=== PATIENT | male | born 1990 | race Hispanic/Latino ===

== ENCOUNTER 2022-02-15 10:42 | Emergency (ER) | payer OTHER ==
--- OUTSIDE RECORDS SUMMARY | 2022-02-15 10:46 | XMS REPORT | Continuity of Care Document ---
:1990 Author Organization [facility] t Address [address] [place] [address] Care Team Providers Name Role Phone PCP, PATIENT DOES NOT HAVE A Primary Care Physician UnavailALLEY Galvez Attending Clinician Unavailable Nurse, [facility] Attending Clinician Unavailable Unknown, Attending Attending Clinician Unavailable HARPREET BISHOP Attending Clinician Unavailable Doctor Unassigned, [place] Attending Clinician Unavailable MIRTA HALL Attending Clinician Unavailable KYLER BERMUDEZ Attending Clinician Unavailable Isabel Mays MD Attending Clinician [phone] Mi Waldron MA Attending Clinician Unavailable Stacey Cuevas MA Attending Clinician Unavailable LAB90 Attending Clinician Unavailable STACEY SHIN Attending Clinician Unavailable Paty Christopher Attending Clinician Stacey [place] Attending Clinician Shavon Rodriguez RN Attending Clinician Unavailable Only, Ang Db Test Attending Clinician Unavailable Lab, Adc Fam Pob I Attending Clinician Unavailable Meggan Palomares Attending Clinician MEGGAN DRAKE Attending Clinician Unavailable Payers Payer Name Policy Type Policy Number Effective Date Expiration Date Judith JOHANSEN 2 [id number] 2021 00:00:00 Problems Condition Condition Condition Status Onset Resolution Last Treating Co mments Source Name Details Category Date Date Treatment Clinician Date Nausea and Nausea and Disease Active 2021-02 M ethodi vomiting vomiting - st 00:00: Hospita 00 l Alternatin Alternatin Disease Active 2021-02 K elsey g g 0-25 Seybold constipati constipati 00:00: - on and on and 00 Externa diarrhea diarrhea l Epigastric Epigastric Disease Active 2021-02 K elsey pain pain 0-25 Seybold 00:00: - 00 Externa l Gastroesop Gastroesop Disease Active 2021-02 K elsepeng hageal hageal 0-25 Seybold reflux reflux 00:00: - disease disease 00 Externa without without l esophagiti esophagiti s s Cystinuria Cystinuria Disease Active 2021-02 K elsey 0-20 Seybold 00:00: - 00 Externa l Well adult Well adult Disease Active 2021-02 K elsey exam exam 0-19 Seybold 00:00: - 00 Externa l Type 2 Type 2 Disease Active 2021-02 Miesha diabetes diabetes 0-19 Seybol d mellitus mellitus 00:00: - with with 00 Externa hyperlipid hyperlipid l emia emia No known No known Disease Unive rs active active ity of problems problems [facility] Allergies, Adverse Reactions, Alerts Allergy Allergy Status Severity Reaction(s) Onset Inactive Treating Comm ents Source Name Type Date Date Clinician NO KNOWN Drug Active Univers ALLERGIE Class ity of S [facility] Family History Family Member Diagnosis Comments Start Date Stop Date Source [facility] Social History Social Habit Start Date Stop Date Quantity Comments Source History SDOH Miesha Hayward ld - Alcohol Std External Drinks History SDOH Miesha Hayward ld - Alcohol Binge External History SDOH Miesha Hayward ld - Alcohol Frequency Externa l Exposure to 2022-01-18 2022-01-28 Not sure University of SARS-CoV-2 00:00:00 17:28:00 [facility] (event) Branch Tobacco use and 2022-01-28 2022-01-28 Smokeless tobacco Un iversity of exposure 00:00:00 00:00:00 non-user [facility] Alcohol intake 2021-12-20 2021-12-20 Ex-drinker Faith 00:00:00 00:00:00 (finding) Hospital Alcohol Comment 2021-11-28 2021-11-28 rarely Miesha Lockett ybold - 00:00:00 00:00:00 External Education 2021-11-28 2021-11-28 16 Miesha Lockettybold - 00:00:00 00:00:00 External Sex [birth year] M Faith 00:00:00 00:00:00 Hospital Smoking Status Start Date Stop Date Source Never smoked tobacco [facility] Tobacco smoking consumption [facility] Medications Ordered Filled Start Stop Current Ordering Indication Dosage Frequency Signature Comments Components Source Medication Medication Date Date Medication? Clinician (SIG) Name Name ondansetron 2021-02- No 4mg Q8H Take 1 Met hodi ODT 02-19 tablet (4 st (ZOFRAN-ODT 00:00: 05:59 mg total) Hospita ) 4 MG 00 :00 by mouth l disintegrat every 8 ing tablet (eight) hours as needed for nausea or vomiting for up to 30 days. Metformin 2021-02 Yes [id number] 1000mg Take 1 Miesha HCl 1000 MG -07 tablet Seybol d oral Tablet 00:00: (1,000 mg - 00 total) by Externa mouth in l the morning and 1 tablet (1,000 mg total) in the evening. Take with meals. Metformin 2021-02- No [id number] 1000mg Take 2 Miesha HCl 500 MG 02-16 11-07 tablets Seybo ld oral Tablet 00:00: 00:00 (1,000 mg - 00 :00 total) by Externa mouth in l the morning and 2 tablets (1,000 mg total) in the evening. Take with meals. Insulin 2021-02 Yes [id number] 10 units Ke lsey Detemir 0-25 sc every Seybold (Levemir 00:00: day - FlexTouch) 00 Externa 100 UNIT/ML l subcutaneou s Solution Pen-injecto r Metformin 2021-02 Yes [id number] 500mg Take 1 K elsey HCl 500 MG 0-25 tablet Seybold oral Tablet 00:00: (500 mg - 00 total) by Externa mouth l daily (with breakfast) Famotidine 2021-02 Yes [id number] 20mg Take 1 Miesha (Pepcid) 20 0-25 tablet (20 Se ybold MG oral 00:00: mg total) - tablet 00 by mouth 2 Externa times l daily Dicyclomine 2021-02 Yes [id number] 10mg Q.[id number] Take 1 Miesha HCl 10 MG 0-25 [id number] capsule S eybold oral 00:00: 3D (10 mg - Capsule 00 total) by Externa mouth 3 l times daily as needed (stomach cramps) Famotidine 2021-02 Yes [id number] 20mg Take 1 Miesha (Pepcid) 20 0-25 tablet (20 Se ybold MG oral 00:00: mg total) - tablet 00 by mouth 2 Externa times l daily Dicyclomine 2021-02 Yes [id number] 10mg Q.[id number] Take 1 Miesha HCl 10 MG 0-25 [id number] capsule S eybold oral 00:00: 3D (10 mg - Capsule 00 total) by Externa mouth 3 l times daily as needed (stomach cramps) Insulin 2021-02- No [id number] 10 units K elsey Detemir 0-25 11-07 sc every Seybold (Levemir 00:00: 00:00 day - FlexTouch) 00 :00 Externa 100 UNIT/ML l subcutaneou s Solution Pen-injecto r Metformin 2021-02- No [id number] 500mg Take 1 Miesha HCl 500 MG 0-25 11-07 tablet Seybol d oral Tablet 00:00: 00:00 (500 mg - 00 :00 total) by Externa mouth l daily (with breakfast) Continuous 2021-02 Yes [id number] Check BS Miesha Blood Gluc 0-19 twice Seybold Sensor 00:00: daily - (FreeStyle 00 Externa Julianne 2 l Sensor) does not apply Misc Continuous 2021-02 Yes [id number] Check BS Miesha Blood Gluc 0-19 twice Seybold Landcare Officer 00:00: daily - (FreeStyle 00 Externa Julianne 2 l [place]) does not apply Device Continuous 2021-02 Yes [id number] Check BS Miesha Blood Gluc 0-19 twice Seybold Sensor 00:00: daily - (FreeStyle 00 Externa Julianne 2 l Sensor) does not apply Misc Continuous 2021-02 Yes [id number] Check BS Miesha Blood Gluc 0-19 twice Seybold Landcare Officer 00:00: daily - (FreeStyle 00 Externa Julianne 2 l [place]) does not apply Device Metformin 2021-02- No [id number] 1000mg Take 2 Miesha HCl 500 MG 0-19 10-25 tablets Seybo ld oral Tablet 00:00: 00:00 (1,000 mg - 00 :00 total) by Externa mouth in l the morning and 2 tablets (1,000 mg total) in the evening. Take with meals. ondansetron 2021- No [id number] 4mg U nivers (ZOFRAN-ODT 05-18 ity of ) 16:00: 14:58 [place] disintegrat 00 :00 Medical ing tablet Branch 4 mg ondansetron 2021- No [id number] 4mg 4 mg, Univers (ZOFRAN-ODT 05-18 Oral, ity of ) 16:00: 14:58 ONCE, 1 [place] disintegrat 00 :00 dose, On Medi gloria ing tablet 05/18/21 Bra nch 4 mg at 1100, Routine dicyclomine 2021- No [id number] 10mg Take 1 Univers 10 mg 05-1816 capsule by ity of capsule 00:00: 04:59 mouth 4 [place] 00 :00 (four) Medical times Branch daily for 7 days. ondansetron 2021- No [id number] 4mg Take 1 Univers 4 mg 05-18 tablet by ity of disintegrat 00:00: 04:59 [place] tablet 00 :00 every 8 Medica l (eight) Branch hours as needed for Nausea and Vomiting (N/V) for up to 5 days. metFORMIN Yes 500mg Q.5D Take 1 Metho di XR 8-[address] (GLUCOPHAGE 00:00: (500 mg Hos naeem -XR) 500 mg 00 total) by l 24 hr mouth 2 tablet (two) times a day. metFORMIN 2020-0 Yes 1000mg Take 1,000 Univers 1,000 mg 2-01 mg by ity of tablet 03:41: mouth 2 [place] [address] (two) Medical times Branch daily with meals. metFORMIN 2020-0 Yes 1000mg Take 1,000 Univers 1,000 mg 2-01 mg by ity of tablet 03:41: mouth 2 [place] [address] (two) Medical times Branch daily with meals. metFORMIN 2020-0 Yes 1000mg Take 1,000 Univers 1,000 mg 1-31 mg by ity of tablet 21:41: mouth 2 [place] [address] (two) Medical times Branch daily with meals. metFORMIN 2020-0 Yes 1000mg Take 1,000 Univers 1,000 mg 1-31 mg by ity of tablet 21:41: mouth 2 [place] [address] (two) Medical times Branch daily with meals. metFORMIN 2020-0 Yes 1000mg Take 1,000 Univers 1,000 mg 1-31 mg by ity of tablet 21:41: mouth 2 [place] [address] (two) Medical times Branch daily with meals. metFORMIN 2020-0 Yes 1000mg Take 1,000 Univers 1,000 mg 1-31 mg by ity of tablet 21:41: mouth 2 [place] [address] (two) Medical times Branch daily with meals. metFORMIN 2020-0 Yes 1000mg Take 1,000 Univers 1,000 mg 1-31 mg by ity of tablet 21:41: mouth 2 [place] [address] (two) Medical times Branch daily with meals. metFORMIN 2020-0 Yes 1000mg Take 1,000 Univers 1,000 mg 1-31 mg by ity of tablet 21:41: mouth 2 [place] [address] (two) Medical times Branch daily with meals. acetaminoph 2020-0 Yes [id number] /2 - 1 Univers en-codeine 1-31 tab Every ity of 300-30 mg 00:00: 4hrs as [place] tablet 00 needed for Medical pain or Branch cough requiring narcotic metoclopram 2020-0 Yes [id number] 1 tab Univers jabari HCl 10 1-31 every 4hr ity of mg tablet 00:00: as needed Diallo as 00 for nausea Medical Branch acetaminoph 2020-0 Yes [id number] /2 - Univers en-codeine 1-31 tab Every ity of 300-30 mg 00:00: 4hrs as [place] tablet 00 needed for Medical pain or Branch cough requiring narcotic metoclopram 2020-0 Yes [id number] 1 tab Univers jabari HCl 10 1-31 every 4hr ity of mg tablet 00:00: as needed Diallo as 00 for nausea Medical Branch acetaminoph 2020-0 Yes [id number] /2 - 1 Univers en-codeine 1-31 tab Every ity of 300-30 mg 00:00: 4hrs as [place] tablet 00 needed for Medical pain or Branch cough requiring narcotic metoclopram 2020-0 Yes [id number] 1 tab Univers jabari HCl 10 1-31 every 4hr ity of mg tablet 00:00: as needed Diallo as 00 for nausea Medical Branch acetaminoph 2020-0 Yes [id number] 2 - 1 Univers en-codeine 1-31 tab Every ity of 300-30 mg 00:00: 4hrs as [place] tablet 00 needed for Medical pain or Branch cough requiring narcotic metoclopram 2020-0 Yes [id number] 1 tab Univers jabari HCl 10 -31 every 4hr ity of mg tablet 00:00: as needed Diallo as 00 for nausea Medical Branch acetaminoph 2020-0 Yes [id number] 2 - 1 Univers en-codeine 1-31 tab Every ity of 300-30 mg 00:00: 4hrs as [place] tablet 00 needed for Medical pain or Branch cough requiring narcotic metoclopram 2020-0 Yes [id number] 1 tab Univers jabari HCl 10 -31 every 4hr ity of mg tablet 00:00: as needed Diallo as 00 for nausea Medical Branch acetaminoph 2020-0 Yes [id number] 2 - 1 Univers en-codeine 1-31 tab Every ity of 300-30 mg 00:00: 4hrs as [place] tablet 00 needed for Medical pain or Branch cough requiring narcotic metoclopram 2020-0 Yes [id number] 1 tab Univers jabari HCl 10 1-31 every 4hr ity of mg tablet 00:00: as needed Diallo as 00 for nausea Medical Branch acetaminoph 2020-0 Yes [id number] 2 - 1 Univers en-codeine 1-31 tab Every ity of 300-30 mg 00:00: 4hrs as [place] tablet 00 needed for Medical pain or Branch cough requiring narcotic metoclopram 2020-0 Yes [id number] 1 tab Univers jabari HCl 10 1-31 every 4hr ity of mg tablet 00:00: as needed Diallo as 00 for nausea Medical Branch acetaminoph 2019-0 Yes [id number] /2 - 1 Univers en-codeine 1-31 tab Every ity of 300-30 mg 00:00: 4hrs as [place] tablet 00 needed for Medical pain or Branch cough requiring narcotic metoclopram 2019-0 Yes [id number] 1 tab Univers jabari HCl 10 1-31 every 4hr ity of mg tablet 00:00: as needed Diallo as 00 for nausea Medical Branch simvastatin 2019-0 Yes Univer s 20 mg 1-29 ity of tablet 00:00: [place] [address] Medical Branch simvastatin 2020-0 Yes Univer s 20 mg 1-29 ity of tablet 00:00: [place] [address] Medical Branch simvastatin 2020-0 Yes Univer s 20 mg 1-29 ity of tablet 00:00: [address] Branch simvastatin 2020-0 Yes Univer s 20 mg 1-29 ity of tablet 00:00: [place] [address] Medical Branch simvastatin 2020-0 Yes Univer s 20 mg 1-29 ity of tablet 00:00: [place] [address] Medical Branch simvastatin 2020-0 Yes Univer s 20 mg 1-29 ity of tablet 00:00: [place] [address] Medical Branch simvastatin 2020-0 Yes Univer s 20 mg 1-29 ity of tablet 00:00: [address] simvastatin 2020-0 Yes Univer s 20 mg 1-29 ity of tablet 00:00: [address] INVOKANA 2018-02 Yes Univers 100 mg 1-06 ity of tablet 00:00: [address] INVOKANA 2018-02 Yes Univers 100 mg 1-06 ity of tablet 00:00: [facility] INVOKANA 2018-02 Yes Univers 100 mg 1-06 ity of tablet 00:00: [address] INVOKANA 2018-02 Yes Univers 100 mg 1-06 ity of tablet 00:00: [address] [facility] Yes Univers 100 mg 1-06 ity of tablet 00:00: [address] 2018-02 Yes Univers 100 mg 1-06 ity of tablet 00:00: [address] INVOKANA 2018- Yes Univers 100 mg 1-06 ity of tablet 00:00: [place] 00 Medical Branch INVOKANA 2019-1 Yes Univers 100 mg 1-06 ity of tablet 00:00: [address] Vital Signs Vital Name Observation Time Observation Value Comments Source Systolic blood 2022-01-28 23:48:00 119 mm[Hg] Univer sity of pressure [facility] Diastolic blood 2022-01-28 23:48:00 81 mm[Hg] Unive rsity of [facility] Heart rate 2022-01-28 23:48:00 98 /min Universi ty [facility] Body temperature 2022-01-28 23:48:00 36.67 [place] Univ ersity of [facility] Respiratory rate 2022-01-28 23:48:00 14 /min [facility] [place] [facility] height 2022-01-28 23:48:00 175.3 cm Universi ty [facility] Body weight 2022-01-28 23:48:00 75.751 kg Universi ty [facility] BMI 2022-01-28 23:48:00 24.66 kg/m2 [facility] Oxygen saturation in 2022-01-28 23:48:00 97 /min [facility] Arterial blood by [facility] Pulse oximetry Branch Systolic blood 2021-12-17 14:06:00 98 mm[Hg] Miesha Seybold - pressure External Diastolic blood 2021-12-17 14:06:00 62 mm[Hg] Narda y Masoudold - pressure External Heart rate 2021-12-17 14:06:00 71 /min Miesha S eybold - External Body temperature 2021-12-17 14:06:00 36.78 [place] Ashly ey Seybold - External Respiratory rate 2021-12-17 14:06:00 16 /min Ashly ey Seybold - External Body height 2021-12-17 14:06:00 175.3 cm Miesha S eybold - External Body weight 2021-12-17 14:06:00 83.462 kg Miesha S eybold - External BMI 2021-12-17 14:06:00 27.17 kg/m2 Miesha S eybold - External Systolic blood 2021-12-04 12:58:00 114 mm[Hg] Miesha Seybold - pressure External Diastolic blood 2021-12-04 12:58:00 62 mm[Hg] Narda y Elana - pressure External Heart rate 2021-12-04 12:58:00 85 /min Miesha hudsonbold - External Body temperature 2021-12-04 12:58:00 36.39 [place] Ashly hudson Seybold - External Respiratory rate 2021-12-04 12:58:00 16 /min Ashly hudson Seybold - External Body height 2021-12-04 12:58:00 175.3 cm Miesha hudsonbold - External Body weight 2021-12-04 12:58:00 82.101 kg Miesha hudsonbold - External BMI 2021-12-04 12:58:00 26.73 kg/m2 Miesha hudsonbold - External Systolic blood 2021-05-18 14:47:00 120 mm[Hg] Univer sity of [facility] Diastolic blood 2021-05-18 14:47:00 80 mm[Hg] Unive rsity of [facility] Heart rate 2021-05-18 14:47:00 91 /min [facility] Body temperature 2021-05-18 14:47:00 36.89 Brook [facility] [place] ersity [facility] Respiratory rate 2021-05-18 14:47:00 18 /min [facility] [place] [facility] Body height 2021-05-18 14:47:00 175.3 cm [facility] Body weight 2021-05-18 14:47:00 92.761 kg [facility] BMI 2021-05-18 14:47:00 30.20 kg/m2 [facility] Oxygen saturation in 2021-05-18 14:47:00 99 /min [facility] Arterial blood by [facility] Pulse oximetry Branch Systolic blood 2021-12-20 14:29:00 127 mm[Hg] Method ist Hospital pressure Diastolic blood 2021-12-20 14:29:00 79 mm[Hg] [facility] pressure Heart rate 2021-12-20 14:29:00 67 /[facility] 2021-12-20 14:29:00 175.3 [facility] weight 2021-12-20 14:29:00 81.194 [facility] BMI 2021-12-20 14:29:00 26.43 kg/m2 [facility] Procedures Procedure Date / Time Performed Performing Clinician Carina joyner ASSIGNMENT OF BENEFITS 2022-01-28 23:29:28 Doctor Unassigned, No [facility] POCT MOLECULAR FLU 2021-05-18 14:56:00 Stacey Shin Danny [facility] ASSIGNMENT OF BENEFITS 2020-11-06 15:54:15 Doctor Unassigned, No [facility] Plan of Care Planned Activity Planned Date Details Comments Source Future Scheduled 2022-02-15 COVID-[address] [facility] Test 10:37:37 (#1) [code = COVID-19 VACCINE (#1)] Future Scheduled 2022-02-15 [facility] Test 10:37:37 screening (procedure) [code = 595321084] Future Scheduled 2022-02-15 INFLUENZA VACCINE [facility] Test 10:37:37 [code = INFLUENZA VACCINE] Encounters Start End Encounter Admission Attending Care Care Encounter Source Date/Time Date/Time Type Type Clinicians Facility Department ID 2022-03-19 2022-03-19 Outpatient MIESHA QUIROGA [id number] Miesha 08:15:00 08:15:00 ALLEY [place] 2022-02-15 2022-02-15 Outpatient MIESHA QUIROAG [id number] Miesha 00:00:00 00:00:00 ALLEY [place] 2022-01-28 2022-01-28 Nurse [facility] [id number] [id number] Univers 17:15:00 17:52:33 Visit Unknown, [facility]2.686 Diallo as SURAJ?BLEA [id number] Mn alice [address] MEDICAL OFFICE BUILDING 2022-01-28 2022-01-[address] [facility] [id number] Univers 17:15:00 17:52:33 HARPREET [facility] 2022-01-28 2022-01-28 Orders Doctor PARK 1.2.840.114 [id number] Univers 00:00:00 00:00:00 Only Unassigned, ANMOL 350.1.13.10 ity of [place] [facility] 4.2.7.2.686 Diallo as [id number] [place] [address] Branch 2022-01-22 2022-01-22 Outpatient MIESHA QUIROGA [id number] Miesha 00:00:00 00:00:00 ALLEY Seybol d 2022-01-21 2022-01-21 Outpatient MIRTA HALL [id number] Miesha 15:15:00 15:15:00 Seybol d 2022-01-20 2022-01-20 Outpatient MIESHA QUIROGA [id number] Miesha 00:00:00 00:00:00 ALLEY Seybol d 2022-01-11 2022-01-11 Outpatient MIESHA BERMUDEZ [id number] Miesha 00:00:00 00:00:00 MUHAMMED Seybo ld 2021-12-24 2021-12-24 Outpatient MIESHA QUIROGA [id number] Miesha 00:00:00 00:00:00 ALLEY Seybol d 2021-12-20 2021-12-20 Office Davon, 1.2.840.1 [id number] Methodi 08:30:00 09:06:29 Visit Isabel [address]7212.1.[address] [place] 3.430.2.7 Hospit a .3.967307 l .8 2021-12-20 2021-12-20 Telephone Vanita, 1.2.840.7 [id number] Methodi 00:00:00 00:00:[address] 3.430.2.7 Hospit a .3.861079 l .8 2021-12-20 2021-12-20 Travel 1.2.840.1 [id number] [id number] Methodi 00:00:00 00:00:[address] 3.430.2.7 0.2.7.3.698 Ho spita .3.201803 084.8 l .8 2021-12-20 2021-12-20 Outpatient DAVON [facility] [id number] [place] 00:00:00 00:00:[address] 2021-12-17 2021-12-17 Outpatient MIESHA QUIROGA [id number] Miesha 08:15:00 08:15:00 ALLEY Seybol d 2021-12-17 2021-12-17 Outpatient MIESHA QUIROGA [id number] Miesha 00:00:00 00:00:00 ALLEY Seybol d 2021-12-17 2021-12-17 Telephone Cuevas, 1.2.840.1 [id number] Methodi 00:00:00 00:00:[address] 3.430.2.7 Hospit a .3.089115 l .8 2021-12-12 2021-12-12 Travel 1.2.840.1 [id number] [id number] Methodi 00:00:00 00:00:[address] 3.430.2.7 0.2.7.3.698 Ho spita .3.325123 084.8 l .8 2021-12-07 2021-12-07 Outpatient MIESHA QUIROGA [id number] Miesha 00:00:00 00:00:00 ALLEY Seybol d 2021-12-04 2021-12-04 Outpatient MIESHA QUIROGA [id number] Miesha 08:00:00 08:00:00 ALLEY Seybol d 2021-11-28 2021-11-28 Outpatient LAB90 MIESHA RM [id number] Miesha 11:00:00 11:00:00 Seybol d 2021-11-28 2021-11-28 Outpatient MIESHA QUIORGA [id number] Miesha 10:15:00 10:15:00 ALLEY Seybol d 2021-05-18 2021-05-[address] [facility] [id number] [facility] 09:40:00 10:34:32 STACEY ity o f [facility] 2021-05-18 2021-05-18 Urgent Paty Cisneros [facility] 1.2.840.114 [id number] Univers 09:40:00 10:00:00 Care Stacey Shin 350.1.13.10 ity of [place] 4.2.7.2.686 Diallo as SURAJ?BLEA [phone] Mn dical NAEL [address] MEDICAL OFFICE BUILDING 2020-11-07 2020-11-07 Telephone VIVIAN Rodriguez 1.2.351.299 [id number] Univers 00:00:00 00:00:00 Shavon ANMOL 350.1.13.10 it y of HOSPITAL 4.2.7.2.686 Diallo as [id number] [facility] [address] 2020-11-06 2020-11-06 Laboratory Only, Ang Db Test [facility] 1.2.8 40.114 [id number] Univers 10:54:42 11:09:42 Only Stacey Shin [place] 350.1.13.10 ity of [place] 4.2.7.2.686 Diallo as Suraj?Blea [phone] Mn dical kney [address] [facility] 2020-11-06 2020-11-[address] [facility] [id number] Univers 11:00:00 11:00:00 ity of [facility] 2020-11-06 2020-11-06 Orders Doctor PARK 1.2.840.114 [id number] Univers 00:00:00 00:00:00 Only Unassigned, ANMOL 350.1.13.10 ity of [place] [facility] 4.2.7.2.686 Diallo as [id number] [facility] [address] 2019-10-03 2019-10-03 Laboratory Lab, Adc Fam Pob I [facility] 1.2. 840.114 [id number] Univers 11:51:02 12:11:02 Only Meggan [facility] 350.1.13.10 ity of [place] 4.2.7.2.686 Diallo as Professio [id number] Mn dical nal [address] 2019-10-03 2019-10-[address] [facility] [id number] Univers 12:00:00 12:00:00 MEGGAN gonzalez [facility] 2019-10-03 2019-10-03 Letter Doctor VIVIAN 1.2.840.114 [id number] Univers 00:00:00 00:00:00 (Out) Unassigned, ANMOL 350.1.13.10 ity of [place] [facility] 4.2.7.2.686 Diallo as [id number] [address] Results Test Description Test Time Test Comments Results Result Comments Source POCT MOLECULAR FLU 2021-05-18 15:08:04 Test Item Value Reference Range Interpretation Comme nts POCT Molecular FluA (test code = 39143-8) Negative Negative POCT Molecular FluB (test code = 03966-5) Negative Negative Lab Interpretation (test code = 97629-5) Normal [facility]
[2022-02-15 11:36] LABS: Absolute Lymphocytes (CBC) 2.8 K/uL (0.7-4.9); Hematocrit 38.5 % (39.6-49.0); Lymphocytes % 32.2 % (15.3-44.8); MCV 88.1 fL (80-100); MPV 10.1 fL (7.6-11.3); RBC Red Blood Cell Count 4.37 M/uL (4.33-5.43)
[2022-02-15 11:55] LABS: Magnesium 1.8 mg/dL (1.6-2.4); Potassium 3.7 mmol/L (3.5-5.1); Troponin High Sensitivity 4.6 pg/mL (<58.9)
--- NOTE | 2022-02-15 12:15 | RAD REPORT ---
EXAM DESCRIPTION: RAD - Chest Single View - 02/15/2022 12:10 pm CLINICAL HISTORY: CHEST PAIN COMPARISON: No comparisons FINDINGS: Lines: None. Lungs: No evidence of edema or pneumonia. Pleural: No significant pleural effusions or pneumothorax. Cardiac: The heart size is within normal limits. Mediastinum: Within normal limits. Bones: No acute fractures. Other: None IMPRESSION: No acute cardiopulmonary disease.
--- NOTE | 2022-02-15 13:18 | EDPHYS ---
Physician Documentation [facility] Name: Rusty Krishnamurthy Age: 31 yrs Sex: Male : 1990 Arrival Date: 02/15/2022 Time: 10:43 Bed 16 Private MD: Grover Valentino ED Physician Ricky Sanches HPI: 02/15 13:18 This 31 yrs old Male presents to ER via Ambulatory with complaints of Chest ms3 Pressure, Abdominal Pain, Dizziness, Shortness Of Breath. 13:18 31-year-old male with past medical history of diabetes mellitus type 2 presents for ms3 chest pressure that he rates a 6/10 and states is better after burping. Patient states he did have a bad day yesterday and thinks this could be contributing to his current symptoms. Patient states his symptoms began when he arrived at work at 4:45 AM. Patient endorses nausea, vomiting, shortness of breath.. Historical: - Allergies: 11:09 No Known Allergies; ap3 - Home Meds: 11:09 metformin 500 mg Oral tab 1 tab [Active]; ap3 - PMHx: 11:09 Diabetes mellitus; ap3 - Immunization history:: Client reports having NOT received the Covid vaccine. Flu vaccine is not up to date. - Social history:: Smoking status: Patient denies any tobacco usage or history of. ROS: 13:18 Constitutional: Negative for fever, and chills. Neck: Negative for injury, pain, and ms3 swelling. 13:18 Skin: Negative for injury, rash, and discoloration. 13:18 Cardiovascular: Positive for chest pain. 13:18 Respiratory: Positive for shortness of breath. 13:18 Abdomen/GI: Positive for nausea and vomiting. Exam: 11:36 ECG was reviewed by the Attending Physician. ms3 13:18 Constitutional: This is a well developed, well nourished patient who is awake, alert, ms3 and in no acute distress. Head/Face: Normocephalic, atraumatic. Neck: Trachea midline, no cervical lymphadenopathy. Supple, full range of motion without nuchal rigidity, or vertebral point tenderness. No Meningismus. Chest/axilla: Normal chest wall appearance and motion. Nontender with no deformity. Cardiovascular: Regular rate and rhythm with a normal S1 and S2. No gallops, murmurs, or rubs. Normal PMI, no JVD. No pulse deficits. Respiratory: Lungs have equal breath sounds bilaterally, clear to auscultation and percussion. No rales, rhonchi or wheezes noted. No increased work of breathing, no retractions or nasal flaring. Abdomen/GI: Soft, non-tender, with normal bowel sounds. No distension or tympany. No guarding or rebound. No evidence of tenderness throughout. Skin: Warm, dry with normal turgor. Normal color with no rashes, no lesions, and no evidence of cellulitis. MS/ Extremity: Pulses equal, no cyanosis. Neurovascular intact. Full, normal range of motion. Vital Signs: 11:08 BP 127 / 86; Pulse 87; Resp 17; Temp 99.0; Pulse Ox 100% ; Weight 70.31 kg; Height 5 ap3 ft. 9 in. (175.26 cm); Pain 6/10; 12:38 BP 131 / 90; Pulse 69; Resp 17; Pulse Ox 99% ; bp 13:39 BP 136 / 88; Pulse 72; Resp 18; Pulse Ox 99% ; jh5 11:08 Body Mass Index 22.89 (70.31 kg, 175.26 cm) ap3 MDM: 11:15 ED course: ASA not given in the ED as patient took BC powder this AM (contains 845 mg ms3 ASA).. 11:16 Patient medically screened. ms3 13:18 Differential diagnosis: abnormal EKG, acute myocardial infarction, coronary artery ms3 disease pneumonia, pulmonary embolus. HEART Score: History: Slightly Suspicious (0), ECG: Normal (0), Age: < or = 45 years (0), Risk Factors: 1 or 2 risk factors (1), Troponin: < or = 1 x Normal Limit (0), Total Score = 1. ED course: Patient's D-dimer negative at this time. CTA for pulmonary embolism is not indicated. Patient's heart score 1, for chronic condition of diabetes mellitus. Patient to follow-up with his primary care physician and Dr. Casey in 2 to 3 days. Patient stands agrees with plan. All questions were answered. Return precautions discussed include worsening symptoms, or any other concerns.. 13:20 Data reviewed: vital signs, nurses notes, EKG, radiologic studies, plain films, and as ms3 a result, I will discharge patient. Test interpretation: by ED physician or midlevel provider: ECG. Counseling: I had a detailed discussion with the patient and/or guardian regarding: the historical points, exam findings, and any diagnostic results supporting the discharge/admit diagnosis, lab results, radiology results, the need for outpatient follow up, to return to the emergency department if symptoms worsen or persist or if there are any questions or concerns that arise at home. Special discussion: I discussed with the patient/guardian in detail that at this point there is no indication for admission to the hospital. It is understood, however, that if the symptoms persist or worsen the patient needs to return immediately for re-evaluation. 02/15 11:15 Order name: Basic Metabolic Panel; Complete Time: 12:02 ms3 02/15 11:15 Order name: CBC with Diff; Complete Time: 12:02 ms3 02/15 11:15 Order name: D-Dimer; Complete Time: 12:02 ms3 02/15 11:15 Order name: Magnesium; Complete Time: 12:02 ms3 02/15 11:15 Order name: Troponin HS; Complete Time: 12:02 ms3 02/15 11:15 Order name: XRAY Chest (1 view); Complete Time: 13:02 ms3 02/15 11:15 Order name: EKG; Complete Time: 11:16 ms3 02/15 11:15 Order name: Cardiac monitoring; Complete Time: 11:41 ms3 02/15 11:15 Order name: EKG - Nurse/Tech; Complete Time: 11:41 ms3 02/15 11:15 Order name: IV Saline Lock; Complete Time: 11:32 ms3 02/15 11:15 Order name: Labs collected and sent; Complete Time: 11:32 ms3 02/15 11:15 Order name: O2 Per Protocol; Complete Time: 11:41 ms3 02/15 11:15 Order name: O2 Sat Monitoring; Complete Time: 11:41 ms3 EC:36 Rate is 69 beats/min. Rhythm is regular. QRS [place] is Normal. [place] interval is normal. QRS ms3 interval is normal. Clinical impression: Normal ECG. Interpreted by me. Reviewed by me. Administered Medications: No medications were administered Disposition Summary: 02/15/22 13:17 Discharge Ordered Location: Home ms3 Condition: Stable ms3 Diagnosis - Chest pain, unspecified ms3 - Dizziness ms3 Followup: ms3 - With: Grover Valentino DO - When: 2 - 3 days - Reason: Recheck today's complaints Followup: ms3 - With: Luan Casey MD - When: 2 - 3 days - Reason: Recheck today's complaints Discharge Instructions: - Discharge Summary Sheet ms3 - Nonspecific Chest Pain, Adult ms3 Forms: - Medication Reconciliation Form ms3 - Thank You Letter ms3 - Antibiotic Education ms3 - Prescription Opioid Use ms3 Signatures: Dispatcher [employer] Cara Salguero RN RN ap3 iRcky Sanches DO DO ms3 Corrections: (The following items were deleted from the chart) 11:10 11:09 Home Meds: None; ap3 ap3
--- NOTE | 2022-02-15 13:18 | ER ---
Nurse's Notes [facility] Name: Rusty Krishnamurthy Age: 31 yrs Sex: Male : 1990 Arrival Date: 02/15/2022 Time: 10:43 Bed 16 Private MD: Grover Valentino Diagnosis: Chest pain, unspecified;Dizziness Presentation: 02/15 11:08 Chief complaint: Patient states: he has been having dizzy feelings upon standing for ap3 approx 6 weeks, but it has gotten worse in the last 4 weeks. patient also reports an increase in burping over this time period. patient states that yesterday the dizziness was a little worse and he felt a "little chest tightness like something is stuck there". Coronavirus screen: At this time, the client does not indicate any symptoms associated with coronavirus-19. Ebola Screen: No symptoms or risks identified at this time. Initial Sepsis Screen: Does the patient meet any 2 criteria? No. Patient's initial sepsis screen is negative. Does the patient have a suspected source of infection? No. Patient's initial sepsis screen is negative. Risk Assessment: Do you want to hurt yourself or someone else? Patient reports no desire to harm self or others. Onset of symptoms is unknown. 11:08 Method Of Arrival: Ambulatory ap3 11:08 Acuity: SHANNAN 3 ap3 Triage Assessment: 11:10 General: Appears uncomfortable, Behavior is calm, cooperative, appropriate for age. ap3 Pain: Complains of pain in mid-sternal area. Pain: Pain currently is 5 out of 10 on a pain scale. Quality of pain is described as pressure, Pain began over the last few weeks. Neuro: Level of Consciousness is awake, alert, obeys commands, Oriented to person, place, time, situation, Appropriate for age Gait is steady, Speech is normal. Cardiovascular: Patient's skin is warm and dry. Respiratory: Airway is patent Respiratory effort is even, unlabored, Respiratory pattern is regular, symmetrical. 11:12 General:. Neuro: Reports dizziness. GI: Reports nausea. ap3 Historical: - Allergies: 11:09 No Known Allergies; ap3 - Home Meds: 11:09 metformin 500 mg Oral tab 1 tab [Active]; ap3 - PMHx: 11:09 Diabetes mellitus; ap3 - Immunization history:: Client reports having NOT received the Covid vaccine. Flu vaccine is not up to date. - Social history:: Smoking status: Patient denies any tobacco usage or history of. Screenin:12 Abuse screen: Denies threats or abuse. Nutritional screening: No deficits noted. ap3 Tuberculosis screening: No symptoms or risk factors identified. 11:30 [facility] ED Fall Risk Assessment (Adult) History of falling in the last 3 months, bp including since admission No falls in past 3 months (0 pts). Assessment: 11:30 General: SEE TRIAGE NOTE. bp 12:38 Reassessment: No changes from previously documented assessment. Patient and/or family bp updated on plan of care and expected duration. Pain level reassessed. Vital Signs: 11:08 BP 127 / 86; Pulse 87; Resp 17; Temp 99.0; Pulse Ox 100% ; Weight 70.31 kg; Height 5 ap3 ft. 9 in. (175.26 cm); Pain 6/10; 12:38 BP 131 / 90; Pulse 69; Resp 17; Pulse Ox 99% ; bp 13:39 BP 136 / 88; Pulse 72; Resp 18; Pulse Ox 99% ; jh5 11:08 Body Mass Index 22.89 (70.31 kg, 175.26 cm) ap3 ED Course: 10:43 Patient arrived in ED. as 10:44 Grover Valentino DO is Private Physician. as 11:09 Triage completed. ap3 11:10 Ricky Sanches DO is Attending Physician. ms3 11:12 Patient maintains SpO2 saturation greater than 95% on room air. ap3 11:12 Arm band placed on right wrist. ap3 11:20 Yair Spivey, RN is Primary Nurse. bp 11:30 Patient has correct armband on for positive identification. Bed in low position. Call bp light in reach. Side rails up X2. Client placed on continuous cardiac and pulse oximetry monitoring. NIBP monitoring applied. 11:31 Initial lab(s) drawn, by me, sent to lab. Inserted saline lock: 20 gauge in left jw7 antecubital area, using aseptic technique. Blood collected. 11:32 Warm blanket given. jw7 11:41 EKG done, by ED staff, reviewed by Ricky Sanches DO. jw7 12:12 XRAY Chest (1 view) In Process Unspecified. EDMS 13:14 Grover Valentino DO is Referral Physician. ms3 13:14 Luan Casey MD is Referral Physician. ms3 13:40 IV discontinued, intact, bleeding controlled, No redness/swelling at site. Pressure 5 dressing applied. Administered Medications: No medications were administered Medication: 11:30 VIS not applicable for this client. bp Outcome: 13:17 Discharge ordered by MD. ms3 13:40 Discharged to home ambulatory. 5 13:40 Condition: good 13:40 Discharge instructions given to patient, family, Instructed on discharge instructions, follow up and referral plans. safety practices, Demonstrated understanding of instructions, follow-up care, medications. 13:41 Patient left the ED. 5 Signatures: Dispatcher [employer] EDNY Evelin Thompson Brian, RN RN Cara Ennis RN RN ap3 Ricky Sanches DO DO ms3 Radha Land RN RN 5 Randee Camarillo7 Corrections: (The following items were deleted from the chart) 11:10 11:09 Home Meds: None; ap3 ap3
[2022-02-15 14:11] VITALS: TEMP 99
[2022-02-15 14:17] VITALS: O2SAT 99
[2022-02-15 14:22] VITALS: BP 136/88
--- NOTE | 2022-02-16 17:40 | EKG ---
Test Date: 2022-02-15 Test Time: 11:36:43 Newspaper Peddler: WILBER MEASUREMENT RESULTS: Intervals: Rate: 69 ID: [id number] QRSD: 90 QT: 398 QTc: 426 [place]: P: 54 ID: [id number] QRS: 68 T: 63 INTERPRETIVE STATEMENTS: Normal sinus rhythm Normal ECG No previous ECG available for comparison Electronically Signed On 02-16-22 17:39:01 [employer]IE[employer] by Luan Casey
== END 2022-02-15 13:41 | disposition home or self-care (01) ==
LOC: ER 10:42
DX: R07.89 Other chest pain (principal); R42 Dizziness and giddiness; E11.9 Type 2 diabetes mellitus without complications
CPT/HCPCS: 36415; 71045; 80048; 83735; 84484; 85025; 85379; 93005; 99284

== ENCOUNTER 2023-02-06 13:15 | Day surgery (SDC) | payer OTHER ==
[2023-02-06] MEDS ORDERED: NA CHLORIDE 0.9% 1,000 ML ONE (13:25)
--- NOTE | 2023-02-06 13:25 | EKG ---
Test Date: 2023-02-06 Test Time: 14:10:08 Vp Director Of Finance: DO MEASUREMENT RESULTS: Intervals: Rate: 59 MS: 150 QRSD: 98 QT: 418 QTc: 413 [place]: P: 59 MS: 150 QRS: 63 T: 57 INTERPRETIVE STATEMENTS: Sinus bradycardia Otherwise normal ECG Compared to ECG 02/15/2022 11:36:43 Sinus rhythm no longer present Electronically Signed On 02-06-23 13:21:34 ACID CONDITIONER by Luan Casey
[2023-02-06] MEDS ORDERED: CEFAZOLIN SODIUM 1 GM/VIAL ONE (13:34)
[2023-02-06 13:37] LABS: Potassium 4.6 mEq/L (3.5-5.1)
[2023-02-06] MEDS ORDERED: INSULIN REGULAR (HUMAN) 100 UNIT/ML ONE (13:53)
[2023-02-06] MEDS ORDERED: MIDAZOLAM HCL 2 MG/2 ML INJ ONE (15:23)
[2023-02-06] MEDS ORDERED: LIDOCAINE 2% MPF 5 ML VIAL ONE (15:23)
[2023-02-06] MEDS ORDERED: propofoL 200 MG/20 ML VIAL IV ONE (15:23)
[2023-02-06] MEDS ORDERED: FENTANYL CITR 100 MCG/2 ML ONE (15:23)
[2023-02-06] MEDS ORDERED: BUPIVACAINE 0.25% PF 10 ML VIAL ONE (15:35)
[2023-02-06] MEDS ORDERED: KETOROLAC 30 MG/ML INJ ONE (15:48)
--- NOTE | 2023-02-06 16:21 | P.OP ---
Preoperative diagnosis: RIGHT lower extremity abcess Postoperative diagnosis: RIGHT lower extremity abcess Primary procedure: Excisional Debridment of RIGHT lower extremity abcess Anesthesia: GETA + Local Estimated blood loss: <3cc Specimen: cultures, debridement tissue Findings: ~3cm x 2 cm x 2 cm RIGHT lower extremity abcess Complications: None Transferred to: Recovery Room Condition: Good
[2023-02-06 17:06] VITALS: TEMP 97.2
[2023-02-06] MEDS ORDERED: HYDROCODONE/APAP 10/325 TAB ONE (17:27)
[2023-02-06 18:26] VITALS: BP 130/85; O2SAT 100
--- NOTE | 2023-02-06 23:52 | OP ---
Date of Procedure: 02/06/2023 Surgeon: Tor Handy MD, Preoperative Diagnosis: Right lower extremity abscess. Postoperative Diagnosis: Right lower extremity abscess. Procedure Performed: Excisional debridement of right lower extremity abscess. Anesthesia: General endotracheal plus local with 0.25% Marcaine. Estimated Blood Loss: Less than 3 cc. Specimens: Culture sent both aerobic and anaerobic speciation as well as debridement of tissue. Findings: Approximately 3 cm x 2 cm x 2 cm right lower extremity abscess with surrounding cellulitis and necrosis. Complications: None. Disposition: The patient was transferred to recovery room in good condition. Procedure In Detail: After informed consent was obtained, the patient was brought to the operating r oom, prepped and draped in usual sterile fashion. After adequate anesthesia was achieved, I made an elliptical incision down around an infected appearing hematoma of the right tibia near the midportion for approximately 3 cm x 2 cm. Immediately encountered was abscess type material. This was culture d for both aerobic and anaerobic speciation. I then took out the circumferential ellipse of tissue u sing electrocautery. I took out and debrided all of the necrotic tissue using a combination of elect rocautery and blunt dissection, ultimately cleaning the area out. I then irrigated the area copiousl y, achieved hemostasis easily with electrocautery and then packed the wound with Vashe-soaked 1-inch packing, and a sterile dressing placed over top. The patient tolerated procedure without any complication and transferred to PACU in good condition. All counts were correct at the end of the ca se. LARS/MODL Voice ID: [id number] Report ID: [id number]
== END 2023-02-06 18:05 | disposition home or self-care (01) ==
LOC: OR 13:15
PROVIDERS: ATTEND Surgery
PROC: 0JBN0ZZ Excision of Right Lower Leg Subcutaneous Tissue and Fascia, Open Approach (ICD-10-PCS; principal; 2023-02-06 16:00)
DX: L02.415 Cutaneous abscess of right lower limb (principal); L03.115 Cellulitis of right lower limb; I96 Gangrene, not elsewhere classified
CPT/HCPCS: 93005; 87070; 80048; 36415; 87205; 82947 ×2; 87075; 87077; 87186; 11042; J2704; J2001; J2250; J3010; J7030; J0690; J1815